=== PATIENT | male | born 1935 | race Caucasian/White ===

== ENCOUNTER 2020-08-25 09:58 | Emergency (ER) | payer MEDICARE, OTHER ==
[~2020-08-25] VITALS: Ht 170.2 cm; Wt 109.3 kg
[2020-08-25] MEDS ORDERED: FUROSEMIDE 20 M20 MG PO (10:19)
[2020-08-25] MEDS ORDERED: PROSCAR 5MG TABL5 M1 PO (10:19)
[2020-08-25] MEDS ORDERED: DIGESTIVE PROB250 MG PO (10:20)
[2020-08-25] MEDS ORDERED: ALLOPURINOL 10100 M3 PO (10:20)
[2020-08-25] MEDS ORDERED: BIDIL TABLET1 EACH PO (10:20)
[2020-08-25] MEDS ORDERED: SUPER THERAVIT1 EACH PO (10:20)
[2020-08-25] MEDS ORDERED: VITAMIN D310 MC3 PO (10:20)
[2020-08-25] MEDS ORDERED: COLESTIPOL HCL1 G1 PO (10:21)
[2020-08-25] MEDS ORDERED: FISH OIL 1,0001 EAC9 PO (10:21)
[2020-08-25] MEDS ORDERED: NEURONTIN 300M300 M2 PO (10:21)
[2020-08-25] MEDS ORDERED: TOPROL XL100 MG PO (10:22)
[2020-08-25] MEDS ORDERED: ZESTRIL40 MG PO (10:22)
[2020-08-25] MEDS ORDERED: CARDURA XL4 MG PO (10:23)
[2020-08-25] MEDS ORDERED: SIMVASTATIN80 MG PO (10:24)
[2020-08-25] MEDS ORDERED: JANUVIA25 MG PO (10:24)
[2020-08-25] MEDS ORDERED: JANTOVEN2 MG PO (10:24)
[2020-08-25] MEDS ORDERED: JANTOVEN3 MG PO (10:24)
[2020-08-25 10:44] LABS: ABSOLUTE EOSINOPHILS 0.1 thou/uL (0.0-0.7); ABSOLUTE LYMPHOCYTES 1.5 thou/uL (0.8-5.3); ABSOLUTE MONOCYTES 0.3 thou/uL (0.0-1.2); ABSOLUTE NEUTROPHILS 3.1 thou/uL (1.6-8.1); BASOPHILS 0.4 %; EOSINOPHILS 2.2 %; HEMATOCRIT 34.2 % (42.0-52.0); HEMOGLOBIN 11.4 gm/dL (14.0-18.0); LYMPHOCYTES 29.6 %; MCH 31.9 pg (26.0-34.0); MCHC 33.4 g/dL (28.0-37.0); MCV 95.6 fL (80.0-100.0); MONOCYTES 6.8 %; MPV 6.9 fl. (7.2-11.1); NUCLEATED RBCS 0 /100WBC; PLATELET COUNT* 135 thou/uL (150-400); RBC 3.58 mil/uL (4.50-6.00); RDW-CV 14.9 % (10.5-14.5)
[2020-08-25 10:52] LABS: CALCIUM 9.2 mg/dL (8.5-10.1)
[2020-08-25 10:57] LABS: TOTAL BILIRUBIN 0.3 mg/dL (<0.1-1.0); TOTAL PROTEIN 7.2 g/dL (6.4-8.2)
[2020-08-25 11:00] LABS: POTASSIUM 6.2 mmol/L (3.5-5.1)
[2020-08-25 11:48] LABS: INR 1.6; PROTIME 16.9 Seconds (9.20-11.50)
[2020-08-25 13:58] LABS: CALCIUM 9.4 mg/dL (8.5-10.1)
[2020-08-25 14:00] LABS: POTASSIUM 6.1 mmol/L (3.5-5.1)
[2020-08-25 17:12] LABS: CALCIUM 9.3 mg/dL (8.5-10.1)
[2020-08-25 17:13] LABS: POTASSIUM 4.9 mmol/L (3.5-5.1)
[2020-08-25 17:54] VITALS: BP 173/68
--- NOTE | 2020-08-26 10:57 | EKG ---
[place] [address] ELECTROCARDIOGRAM REPORT Name: MELISSA LOMBARDO Room: [facility]#: [id number] Admission: 08/25/20 Attend Phys: Discharge: 08/25/20 Date of : 37 Date of Service: 08/25/20 1011 Report #: [id number] THIS REPORT FOR: //name// [facility] ED Test Date: 2020-08-25 Test Time: 10:11:30 Pat Name: MELISSA LOMBARDO Department: Room: Gender: [employer] Operator: [place] : 1935 Requested By: Stanley Pena Order Number: [id number] MD: Pedro Granger Measurements Intervals [place] Rate: 62 P: 53 DE: 174 QRS: 10 QRSD: 97 T: 44 QT: 434 QTc: 441 Interpretive Statements Sinus rhythm No previous ECG available for comparison Electronically Signed On 08-26-2020 10:57:04 [employer] by Pedro Granger [email or web address] <ELECTRONICALLY SIGNED> By: Pedro Granger MD, LOCATED WITHIN [facility] 08/26/20 1057 D: [id number] 10 Pedro Granger MD, FACC /EPI
== END 2020-08-25 17:55 | disposition home or self-care (01) ==
LOC: M.ERS 09:58
PROVIDERS: Family Medicine
DX: E87.5 Hyperkalemia (principal); I10 Essential (primary) hypertension; E11.9 Type 2 diabetes mellitus without complications; M10.9 Gout, unspecified; E78.00 Pure hypercholesterolemia, unspecified; Z88.8 Allergy status to other drugs, medicaments and biological substances; Z79.01 Long term (current) use of anticoagulants; Z90.49 Acquired absence of other specified parts of digestive tract